=== PATIENT | female | born 1975 | race Two or more races ===

== ENCOUNTER 2025-07-19 12:08 | Emergency (ER) | payer MEDICAID, OTHER ==
[~2025-07-19] VITALS: Ht 162.6 cm; Wt 77.3 kg
[2025-07-19 12:14] VITALS: BP 137/72; PULSE 86; RESP 20; TEMP 98.2; O2SAT 98
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
[2025-07-19 13:33] LABS: Hematocrit 36.3 % (36.0-46.0); Hemoglobin 11.9 g/dL (12.2-16.2); Mean Corpuscular Hemoglobin 27.3 pg (28.0-32.0); Mean Corpuscular Volume 83.3 fL (80.0-100.0); Nucleated Red Blood Cells % 0.1 %
[2025-07-19 13:41] LABS: Alanine Aminotransferase 39 U/L (7-40); Alkaline Phosphatase 79 U/L (46-116); Anion Gap 8 (5-15); BUN/Creatinine Ratio 13.7 (10.0-20.0); Blood Urea Nitrogen 16 mg/dL (9-23); Calcium 9.6 mg/dL (8.7-10.4); Carbon Dioxide 23 mmol/L (20-31); Chloride 105 mmol/L (98-107); Potassium 3.6 mmol/L (3.5-5.1); Total Protein 7.0 g/dL (5.7-8.2)
[2025-07-19 13:42] LABS: Albumin 4.9 g/dL (3.2-4.8); Bilirubin, Total 0.9 mg/dL (0.2-1.0); Glucose 122 mg/dL (74-106); Sodium 136 mmol/L (136-145)
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
[2025-07-19] MEDS: risperiDONE 1 MG TAB PO ONE (20:21)
== END 2025-07-20 15:22 | disposition left against medical advice (07) ==
LOC: ER 12:08
DX: R45.851 Suicidal ideations (principal); F41.9 Anxiety disorder, unspecified; F32.A Depression, unspecified; Z79.899 Other long term (current) drug therapy
CPT/HCPCS: 36415; 80053; 80320; 84702; 85025

== ENCOUNTER 2025-08-21 16:22 | Emergency (ER) | payer MEDICAID ==
[~2025-08-21] VITALS: Ht 162.6 cm; Wt 65.1 kg
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
[2025-08-21 18:30] LABS: Hematocrit 39.8 % (36.0-46.0); Hemoglobin 13.2 g/dL (12.2-16.2); Mean Corpuscular Hemoglobin 27.0 pg (28.0-32.0); Mean Corpuscular Volume 81.6 fL (80.0-100.0); Nucleated Red Blood Cells % 0.1 %
[2025-08-21 18:42] LABS: Chloride 104 mmol/L (98-107); Sodium 144 mmol/L (136-145)
[2025-08-21 18:43] LABS: Anion Gap 9 (5-15); Calcium 9.2 mg/dL (8.7-10.4)
[2025-08-21 18:44] LABS: Carbon Dioxide 31 mmol/L (20-31); Potassium 3.2 mmol/L (3.5-5.1)
[2025-08-21 18:51] LABS: BUN/Creatinine Ratio 6.8 (10.0-20.0); Blood Urea Nitrogen < 5 mg/dL (9-23); Glucose 117 mg/dL (74-106)
[2025-08-21] MEDS: KETOROLAC TROMETH 60MG/2ML VIAL IM ONE (19:32)
[2025-08-21] MEDS: cefTRIAXone SOD 1,000 MG VL IM ONE (19:32)
[2025-08-21] MEDS: ACYCLOVIR 400 MG TAB PO ONE (19:33)
[2025-08-21] MEDS: ACETAMINOPHEN 325 MG TAB PO ONE (19:33)
[2025-08-21] MEDS: TETANUS-DIPTH-ACEL PERTUSSIS 0.5ML SYR Tdap IM ONE (19:34)
[2025-08-21] MEDS: LIDOCAINE 1% HCL (LOCAL ANESTH.) INJ 20ML MDV ONE (19:51)
[2025-08-22] MEDS: ACETAMINOPHEN 500 MG TAB or CAP PO ONE (05:58)
[2025-08-22 06:50] LABS: Benzodiazephine Screen, Urine Neg (NEGATIVE)
[2025-08-22 06:52] LABS: Amphetamine Screen, Urine Pos (NEGATIVE); Barbiturate Scree,Urine Neg (NEGATIVE); Cannabinoid Screen, Urine Pos (NEGATIVE); Cocaine Screen, Urine Neg (NEGATIVE); Opiate Scree,Urine Neg (NEGATIVE); Phencyclidine Screen, Urine Neg (NEGATIVE)
[2025-08-22 06:58] LABS: Urine Protein, UAD 2+ (Negative)
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
[2025-08-22] MEDS: PROPRANOLOL HCL 20 MG TAB PO ONE (12:03)
[2025-08-22] MEDS: ACETAMINOPHEN 325 MG TAB PO ONE (14:43)
[2025-08-22 16:34] VITALS: BP 165/75; PULSE 61; RESP 12; TEMP 98.4; O2SAT 97
[2025-08-22] MEDS ORDERED: PROPRANOLOL HCL 20 MG TAB PO SCH (22:00)
[2025-08-23] MEDS ORDERED: risperiDONE 1 MG TAB PO SCH (10:00)
[2025-08-23] MEDS ORDERED: SERTRALINE HCL 50 MG TAB PO SCH (10:00)
== END 2025-08-22 17:20 ==
LOC: ER 16:24
DX: R45.851 Suicidal ideations (principal); M54.2 Cervicalgia; G89.29 Other chronic pain; F41.9 Anxiety disorder, unspecified; F32.9 Major depressive disorder, single episode, unspecified; Z79.899 Other long term (current) drug therapy
CPT/HCPCS: 36415; 80048; 80307; 80320; 81001; 85025; 90471; 90715; 96372; 99285; J0696; J1885; J2003